=== PATIENT | female | born 1965 | race Caucasian/White ===

== ENCOUNTER 2016-06-21 07:00 | Inpatient (IN) | payer BC ==
[~2016-06-21] VITALS: Ht 177.8 cm; Wt 94.6 kg
[~2016-06-21 07:00] MED LIST: CHOL50009 PO; NITR-58 PO; SMV40T PO; SYMB80120 INH
[2016-08-15 17:45] VITALS: BMI 26.0
[2016-08-16] VITALS (11 sets, daily range): BP systolic 102–132; BP diastolic 48–74; PULSE 69–87; RESP 12–16; Ht 177.8 cm; Wt 94.6 kg
[2016-08-16] MEDS ORDERED: oxyCODONE (CR) 10 MG TAB [oxyCONTIN] PO SCH (06:30)
[2016-08-16] MEDS ORDERED: BUPIVACAINE 0.5% (SDV) 30 ML, morphine SULFATE (PF) 8 MG, EPINEPHrine 0.3 MG, KETOROLAC... IRR SCH ×7 (06:30)
[2016-08-16] MEDS ORDERED: DEXAMETHASONE 1 MG TAB PO SCH (06:30)
[2016-08-16] MEDS ORDERED: CEFAZOLIN 2 GM/50 ML (PMX) 50 ML IVPB SCH (06:30)
[2016-08-16] MEDS ORDERED: traMADol 50 MG TAB PO SCH (06:30)
[2016-08-16] MEDS ORDERED: TRANEXAMIC ACID 1,000 MG in SOD CHLORIDE 0.9% 100 ML IVPB SCH (06:30)
[2016-08-16] MEDS ORDERED: GABAPENTIN 300 MG CAP PO SCH ×2 (06:30→21:00)
[2016-08-16] MEDS ORDERED: ALBU2.5V3 NEB (09:44)
[2016-08-16] MEDS ORDERED: ALBU18HF INHALATION (09:45)
[2016-08-16] MEDS ORDERED: CYAN100 PO (09:45)
[2016-08-16] MEDS ORDERED: GLYCOPYRROLATE 0.4 MG INJ ONE (10:05)
[2016-08-16] MEDS ORDERED: CEFAZOLIN 1 GM INJ ONE (10:05)
[2016-08-16] MEDS ORDERED: ROCURONIUM 50 MG INJ ONE (10:05)
[2016-08-16] MEDS ORDERED: NEOSTIGMINE 3 MG/3 ML SYRINGE ONE (10:05)
[2016-08-16] MEDS ORDERED: FENTAnyl 50 MCG/ML VIAL ONE (10:06)
[2016-08-16] MEDS ORDERED: ROPIVACAINE 0.5 % 30 ML VIAL ONE (10:06)
[2016-08-16] MEDS ORDERED: DEXAMETHASONE 4 MG/ML 1 ML INJ ONE (10:06)
[2016-08-16] MEDS ORDERED: ONDANSETRON 4 MG INJ ONE (10:06)
[2016-08-16] MEDS ORDERED: MIDAZOLAM 1 MG/ML 2 ML INJ ONE (10:06)
[2016-08-16] MEDS ORDERED: PROPOFOL 100 ML ONE (10:06)
[2016-08-16] MEDS ORDERED: THROMBIN 5000 UNIT VIAL ONE (11:50)
[2016-08-16] MEDS ORDERED: POLYMYXIN/BACITRACIN 1L IRRIG ONE (11:50)
[2016-08-16] MEDS ORDERED: CA CHLORIDE 10% 10 ML SYRINGE ONE (11:50)
[2016-08-16] MEDS ORDERED: BUPIVACAINE 0.5%/EPI (SDV) 30 ML INJ ONE (11:50)
--- NOTE | 2016-08-16 12:07 | HPN ---
Date/Time of Note Date/Time of Note DATE: 08/16/16 TIME: 12:07 Interval H&P Admission Note Pt. seen H&P reviewed: No system changes JOVANNI WU MD Aug 16, 2016 12:07
[2016-08-16] MEDS ORDERED: ALBUTEROL 0.083% (NEB) 2.5 MG/3 ML AMP NEB PRN (13:00)
[2016-08-16] MEDS ORDERED: HYDROmorphONE (0.2 MG/ML) 10ML SYG IV PRN ×3 (13:30)
[2016-08-16] MEDS ORDERED: EPHEDrine SULFATE 50 MG/5 ML SYG IV PRN (13:30)
[2016-08-16] MEDS ORDERED: ONDANSETRON 4 MG INJ IV PRN ×2 (13:30→14:30)
[2016-08-16] MEDS ORDERED: hydrALAzine 20 MG INJ IV PRN (13:30)
[2016-08-16] MEDS ORDERED: LABETALOL HCL 20MG INJ IV PRN (13:30)
[2016-08-16] MEDS ORDERED: MIDAZOLAM 1 MG/ML 2 ML INJ IV PRN (13:30)
[2016-08-16] MEDS ORDERED: FENTAnyl 50 MCG/ML VIAL IV PRN ×3 (13:30)
[2016-08-16] MEDS ORDERED: TRIMETHOBENZAMIDE 100 MG/ML VIAL IM PRN (13:30)
[2016-08-16] MEDS ORDERED: DIPHENHYDRAMINE 50 MG INJ IV PRN ×2 (13:30→14:30)
[2016-08-16] MEDS ORDERED: MEPERIDINE 25 MG INJ IV PRN (13:30)
--- NOTE | 2016-08-16 14:05 | PDOCDIS ---
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
--- NOTE | 2016-08-16 14:24 | OPR ---
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 POSTOPERATIVE DIAGNOSIS: Failed right reverse total shoulder replacement. OPERATION PERFORMED: Right shoulder conversion of right reverse total shoulder humeral component to new reverse total shoulder component. Pest Control Service Representative surgeon, Steven Bhandari MD, was asked to be present at my request as a result of the significant surgical complexity associated with this procedure, including positioning of the extremity, manipulation and protection of the neurovascular structures. In my opinion, the assistance offered by a surgical attendant is insufficient and Dr. Manzo should be compensated for his time. PROCEDURE IN DETAIL: Following administration of general endotracheal anesthesia, the patient was placed in the beach chair position and the right upper extremity was prepped and draped in the usual sterile fashion. Examination revealed that there was instability of the humeral component with simple anterior translation. The deltopectoral incision that had been previously made was then opened once again. The subdeltoid plane was elevated and the component was then identified. No significant purulence or reactive tissue was noted. The humeral component was then dislocated and relatively atraumatically removed from the humeral shaft. The glenoid was then inspected and no significant instability or version issues were identified. The humeral shaft was then reamed up to a 12-mm size and a 12-mm DePuy component was then inserted in 30 degrees of retroversion, which appeared to be relatively anatomic for the patient. A 9-mm liner was detached. The joint was then reduced, taken through a full range of motion, with no evident instability. The wound was irrigated once again, closed in layers. A Prineo dressing was then applied in a waterproof fashion. The patient was then placed in a sling, awakened, transported to the recovery room in stable condition, having tolerated the procedure well. Estimated blood loss for this procedure was 100 mL. Postoperative x-rays will be obtained in the recovery room. Dictated By: JOVANNI RUSHING/GRANT Conf#: [id number] DID#: [id number] MTDD
[2016-08-16] MEDS ORDERED: ZOLPIDEM 5 MG TAB PO PRN (14:30)
[2016-08-16] MEDS ORDERED: MAGNESIUM HYDROXIDE 30ML CUP PO PRN (14:30)
[2016-08-16] MEDS ORDERED: morphine 2 MG INJ IV PRN (14:30)
[2016-08-16] MEDS ORDERED: ALBUTEROL HFA 8 GM INHALER INH PRN (14:30)
[2016-08-16] MEDS ORDERED: TRANEXAMIC ACID 1,000 MG in SOD CHLORIDE 0.9% 100 ML IV ONE (14:30)
[2016-08-16] MEDS ORDERED: morphine 4 MG/ML VIAL IV PRN (14:30)
[2016-08-16] MEDS ORDERED: ACETAMINOPHEN 500 MG TAB PO PRN (14:30)
[2016-08-16] MEDS ORDERED: KETOROLAC 15 MG INJ IV PRN (14:30)
[2016-08-16] MEDS ORDERED: OXYCODONE/ACETAMINOPHEN (5/325) TAB PO PRN ×2 (14:30)
--- NOTE | 2016-08-16 14:40 | RADRPT ---
PROCEDURE: XR right Shoulder. CLINICAL INDICATION: Right shoulder pain , postoperative evaluation TECHNIQUE: Two views of the right shoulder are available for review. COMPARISON: Right shoulder radiographs April 09, 2013 FINDINGS: There is a right shoulder reverse total arthroplasty. There is surrounding soft tissue swelling and soft tissue gas. Questionable nondisplaced lucency at the lateral margin of the proximal humeral m etaphysis is noted. IMPRESSION: 1. Right shoulder reverse total arthroplasty in anatomic alignment, with surrounding soft tissue swe lling and soft tissue gas. 2. Questionable lucency along the lateral aspect of the proximal humeral metaphysis may reflect some overlying gas though but also consider a nondisplaced fracture. Continued follow-up is advised. RPTAT: UU .Alexander Conner MD, MD Date Time Electronically viewed and signed by .Alexander Conner MD, on 08/16/2016 14:40 .K/
[2016-08-16] MEDS: CEFAZOLIN 1 GM/50 ML (PMX) 50 ML IVPB SCH ×2 (15:15→21:59)
[2016-08-16] MEDS: DEXAMETHASONE 2 MG TAB PO SCH ×2 (18:00→23:37)
[2016-08-16] MEDS ORDERED: ATORVASTATIN 20 MG TAB PO SCH (21:00)
[2016-08-16] MEDS: SENNA/DOCUSATE NA (8.6MG/50MG) TAB PO SCH (21:59)
[2016-08-17 00:28] VITALS: BP 97/57; RESP 20
[2016-08-17] MEDS: DEXAMETHASONE 2 MG TAB PO SCH ×2 (06:02→10:58)
[2016-08-17] MEDS: CEFAZOLIN 1 GM/50 ML (PMX) 50 ML IVPB SCH (06:02)
--- NOTE | 2016-08-17 06:44 | PN ---
Date/Time of Note Date/Time of Note DATE: 08/17/16 TIME: 06:43 24 hour Interval Summary Patient is comfortable this morning Physical exam: Wound is clean and dry. She is neurologically intact. Her arm is intact with no signs of DVT. Impression: Status post conversion of right reverse total shoulder Plan: She will be discharged this morning after therapy follow-up in 2 weeks. Physical Exam Vital Signs Date Time Temp Pulse Resp B/P Pulse Ox O2 Delivery O2 Flow Rate FiO2 08/17/16 00:28 98.2 76 20 97/57 98 08/16/16 20:04 Room Air Intake and Output 08/16/16 08/16/16 08/17/16 15:00 23:00 07:00 Intake Total 700 ml 650 ml 240 ml Output Total 50 ml Balance 650 ml 650 ml 240 ml VTE Prophylaxis VTE Prophylaxis Intervention: anti-embolic stocking Lines/Catheters IV Catheter Type: Saline Lock Ugarte in Place: No Medications Medications Home Meds Reported Medications Albuterol Sulfate* (Ventolin HFA*) 18 Gm Hfa.aer.ad, 2 PUFF INHALATION Q6H Y for WHEEZING AND SOB, #1 INHALER 08/16/16 Cyanocobalamin* (Vitamin B12*) 100 Mcg Tab, 100 MCG PO DAILY, TAB 08/16/16 Albuterol Sulfate* (Albuterol Sulfate* Neb) 0.083%-3 Ml Neb, 2.5 MG NEB TID Y for WHEEZING AND SOB, #30 VIAL 08/16/16 Cholecalciferol* (Vitamin D*) 5,000 Unit Tablet, 5000 UNIT PO DAILY 04/09/13 Simvastatin (Simvastatin) 40 Mg Tablet, 40 MG PO DAILY 04/09/13 Discontinued Reported Medications Budesonide-Formoterol Fumarate* (Symbicort*) 1 Puff Inha, 120 PUFF INH BID 04/09/13 Nitrofurantoin Monohyd Macrocr* (Macrobid*) 100 Mg Capsr, 100 MG PO BID 04/09/13 JOVANNI WU MD Aug 17, 2016 06:44
--- NOTE | 2016-08-17 06:45 | DS ---
Date/Time of Note Date/Time of Note DATE: 08/17/16 TIME: 06:44 Discharge Summary Admission/Discharge Info Admit Date/Time Aug 16, 2016 at 08:52 Discharge Date/Time August 17, 2016 Final Diagnosis Failed right reverse total shoulder. Patient Condition: Good Procedures Conversion of right reverse total shoulder to new humeral component and reverse total shoulder. Hx of Present Illness Pain and instability of the right shoulder. Hospital Course Patient was admitted and underwent an uncomplicated revision procedure. Postoperative day #1 she was afebrile wound was clean and dry to be discharged and followed up in 10 days. Home Meds Reported Medications Albuterol Sulfate* (Ventolin HFA*) 18 Gm Hfa.aer.ad, 2 PUFF INHALATION Q6H Y for WHEEZING AND SOB, #1 INHALER 08/16/16 Cyanocobalamin* (Vitamin B12*) 100 Mcg Tab, 100 MCG PO DAILY, TAB 08/16/16 Albuterol Sulfate* (Albuterol Sulfate* Neb) 0.083%-3 Ml Neb, 2.5 MG NEB TID Y for WHEEZING AND SOB, #30 VIAL 08/16/16 Cholecalciferol* (Vitamin D*) 5,000 Unit Tablet, 5000 UNIT PO DAILY 04/09/13 Simvastatin (Simvastatin) 40 Mg Tablet, 40 MG PO DAILY 04/09/13 Discontinued Reported Medications Budesonide-Formoterol Fumarate* (Symbicort*) 1 Puff Inha, 120 PUFF INH BID 04/09/13 Nitrofurantoin Monohyd Macrocr* (Macrobid*) 100 Mg Capsr, 100 MG PO BID 04/09/13 Follow-up Plan 2 weeks JOVANNI WU MD Aug 17, 2016 06:45
[2016-08-17 08:14] VITALS: BP 124/58; RESP 18
[2016-08-17] MEDS ORDERED: ASPIRIN 81 MG TAB PO SCH (09:00)
[2016-08-17] MEDS: SENNA/DOCUSATE NA (8.6MG/50MG) TAB PO SCH (09:42)
== END 2016-08-17 11:40 | disposition home or self-care (01) | DRG 483 ==
LOC: REC 08-16 08:52 → MS1 08-16 21:24
PROVIDERS: ADMIT Orthopaedic Surgery; ATTEND Orthopaedic Surgery
PROC: 0RPJ0JZ Removal of Synthetic Substitute from Right Shoulder Joint, Open Approach (ICD-10-PCS; 2016-08-16)
PROC: 0RRJ0J6 Replacement of Right Shoulder Joint with Synthetic Substitute, Humeral Surface, Open Approach (ICD-10-PCS; principal; 2016-08-16 12:00)
DX: T84.028A Dislocation of other internal joint prosthesis, initial encounter (principal); E55.9 Vitamin D deficiency, unspecified; M48.02 Spinal stenosis, cervical region; E03.9 Hypothyroidism, unspecified; Y84.8 Other medical procedures as the cause of abnormal reaction of the patient, or of later complication, without mention of misadventure at the time of the procedure; Y92.019 Unspecified place in single-family (private) house as the place of occurrence of the external cause; E78.5 Hyperlipidemia, unspecified; J45.909 Unspecified asthma, uncomplicated; M25.511 Pain in right shoulder; Z96.611 Presence of right artificial shoulder joint
CPT/HCPCS: 86999; Z7610; J0171; J0690; J0735; J1100; J1885; J2250; J2274; J2405; J2710; J2795; J3010; J3370